=== PATIENT | female | born 1950 | race Caucasian/White ===

== ENCOUNTER 2019-10-23 11:40 | Inpatient (IN) | payer MEDICARE, OTHER ==
[~2019-10-23] VITALS: Ht 152.4 cm; Wt 70.3 kg
[2019-10-23] MEDS ORDERED: CORTEF10 MG PO (11:47)
[2019-10-23] MEDS ORDERED: PROTONIX40 MG PO (11:47)
[2019-10-23] MEDS ORDERED: TOPROL XL25 MG PO (11:47)
[2019-10-23] MEDS ORDERED: ROPINIROLE HCL2 MG PO (11:48)
[2019-10-23] MEDS ORDERED: LEVOXYL25 MCG PO (11:48)
[2019-10-23] MEDS ORDERED: ULTRAM50 MG PO (11:48)
[2019-10-23] MEDS ORDERED: MICARDIS HCT 81 EACH PO (11:49)
[2019-10-23] MEDS ORDERED: MOBIC7.5 MG PO (11:49)
[2019-10-23] MEDS ORDERED: PLAVIX75 MG PO (11:49)
[2019-10-23] MEDS ORDERED: BUPROPION XL150 MG PO (11:50)
[2019-10-23] MEDS ORDERED: BUMEX2 MG PO (11:50)
[2019-10-23] MEDS ORDERED: CORTEF 5 MG TAB5 MG PO (11:51)
[2019-10-23] MEDS ORDERED: K-DUR20 MEQ PO (11:51)
[2019-10-23 12:28] LABS: BILIRUBIN NEGATIVE (NEGATIVE); GLUCOSE NEGATIVE (NEGATIVE); KETONE NEGATIVE (NEGATIVE); NITRITE NEGATIVE (NEGATIVE); UROBILINOGEN NORMAL (NORMAL)
[2019-10-23 12:46] LABS: BASOPHILS 0.5 % (0-2); EOSINOPHILS 1.1 % (0-7); HEMATOCRIT 34.6 % (36.0-48.0); HEMOGLOBIN 11.1 g/dL (12-16); IMMATURE GRANULOCYTES 0.3 % (0-5); LYMPHOCYTES 10.7 % (15-50); MCHC 32.1 g/dL (31.0-37.0); MCV 87.2 fL (80.0-100.0); MEAN PLATELET VOLUME 10.5 fL (7.4-10.4); MONOCYTES 9.4 % (2-11); PLATELET COUNT 214 10x3/uL (130-400); RBC 3.97 10x6/uL (4.00-5.40); RDW 13.5 % (11.5-14.5); WBC 6.6 10x3/uL (4.8-10.8)
[2019-10-23 12:50] VITALS: BP 93/53
[2019-10-23 12:55] LABS: APTT 25.2 SECONDS (22.8-39.4); INR 0.98 (0.85-1.17)
[2019-10-23 12:59] LABS: CALC OSMOLALITY 268 mosm/kg (275-300); CALCIUM 8.5 mg/dL (8.5-10.1); CARBON DIOXIDE 27.8 mmol/L (21.0-32.0); CHLORIDE - SERUM 96 mmol/L (98-107); GLUCOSE 115 mg/dL (74-106); POTASSIUM - SERUM 3.9 mmol/L (3.5-5.1); SODIUM 131 mmol/L (136-145); UREA NITROGEN 27 mg/dL (7-18); eGFR NON AFRICAN AMERICAN 26 mL/min (90-120)
[2019-10-23 13:10] LABS: ALBUMIN 3.9 g/dL (3.4-5.0); ALKALINE PHOSPHATASE 118 U/L (30-120); ALT (SGPT) 16 U/L (10-68); BILIRUBIN - TOTAL 0.31 mg/dL (0.2-1.3); CKMB 0.5 U/L (0.0-3.6); CREATINE KINASE 88 UL (21-215); PRO BNP 514 pg/mL (0-125); PROTEIN - SERUM 6.9 g/dL (6.4-8.2); TROPONIN-I < 0.017 ng/mL (0.000-0.060)
[2019-10-23 13:50] VITALS: BP 107/71
[2019-10-23 14:37] VITALS: BP 93/58
[2019-10-23] MEDS ORDERED: STERAPRED 5MG 65 M1 PO (15:35)
[2019-10-23] MEDS ORDERED: OMNICEF300 MG PO (15:35)
[2019-10-23 15:37] VITALS: BP 93/55
--- NOTE | 2019-10-24 19:38 | NUR ---
PATIENT CALLED AND NOTIFIED OF POSITIVE COVID RESULTS
--- NOTE | 2019-10-25 12:38 | NUR ---
PT TO FLOOR FROM ER ADMISSIONS. IN COVID ISOLATION. IV STARTED AND LABS DRAWN. PT ON ROOM AIR.
[2019-10-25] MEDS ORDERED: METHOCARBAMOL500 MG PO (12:50)
[2019-10-25] MEDS ORDERED: HYDROCODON-ACE1 EAC7 PO (12:51)
[2019-10-25] MEDS ORDERED: VITAMIN D1000 UNIT PO (12:53)
[2019-10-25 13:36] LABS: BASOPHILS 0 % (0-2); EOSINOPHILS 0 % (0-7); HEMATOCRIT 35.6 % (36.0-48.0); HEMOGLOBIN 11.7 g/dL (12-16); IMMATURE GRANULOCYTES 0.4 % (0-5); LYMPHOCYTES 12.9 % (15-50); MCH 28.3 pg (26.0-34.0); MCHC 32.9 g/dL (31.0-37.0); MEAN PLATELET VOLUME 10.5 fL (7.4-10.4); MONOCYTES 8.3 % (2-11); NEUTROPHILS 78.4 % (40-80); PLATELET COUNT 201 10x3/uL (130-400); RBC 4.14 10x6/uL (4.00-5.40); RDW 13.5 % (11.5-14.5); WBC 4.6 10x3/uL (4.8-10.8)
[2019-10-25 14:04] LABS: ANION GAP 15.2 mmol/L (8-16); BILIRUBIN - TOTAL 0.45 mg/dL (0.2-1.3); CALCIUM 8.9 mg/dL (8.5-10.1); CARBON DIOXIDE 26.5 mmol/L (21.0-32.0); POTASSIUM - SERUM 4.7 mmol/L (3.5-5.1)
[2019-10-25 16:03] VITALS: BP 117/45
[2019-10-25 16:37] VITALS: BP 102/64; BMI 30.3
[2019-10-25 18:17] LABS: % SATURATION 14 % (15-55); IRON 61 ug/dl (35-150); TOTAL IRON BIND CAPACITY 427 ug/dl (260-445); UNSAT IRON BIND CAPACITY 366 ug/dl (150-375)
[2019-10-25 21:08] VITALS: BP 95/57
[2019-10-26 00:43] VITALS: BP 91/54
[2019-10-26 05:34] VITALS: BP 92/57
[2019-10-26 07:24] LABS: BASOPHILS 0.2 % (0-2); EOSINOPHILS 0.4 % (0-7); HEMATOCRIT 34.8 % (36.0-48.0); HEMOGLOBIN 11.2 g/dL (12-16); IMMATURE GRANULOCYTES 0.2 % (0-5); MCH 28.2 pg (26.0-34.0); MCHC 32.2 g/dL (31.0-37.0); MCV 87.7 fL (80.0-100.0); MEAN PLATELET VOLUME 10.2 fL (7.4-10.4); MONOCYTES 14.5 % (2-11); NEUTROPHILS 44.7 % (40-80); PLATELET COUNT 206 10x3/uL (130-400); RBC 3.97 10x6/uL (4.00-5.40); RDW 13.6 % (11.5-14.5); WBC 4.6 10x3/uL (4.8-10.8)
[2019-10-26 07:29] LABS: ALBUMIN 3.8 g/dL (3.4-5.0); ANION GAP 11.2 mmol/L (8-16); BILIRUBIN - TOTAL 0.51 mg/dL (0.2-1.3); CALCIUM 8.8 mg/dL (8.5-10.1); CARBON DIOXIDE 28.9 mmol/L (21.0-32.0); CREATININE - SERUM 1.9 mg/dL (0.6-1.3); POTASSIUM - SERUM 4.1 mmol/L (3.5-5.1); PROTEIN - SERUM 6.6 g/dL (6.4-8.2)
--- NOTE | 2019-10-26 09:27 | NUR ---
PT AWAKE AND ORIETNED, LYING IN BED. SAT UP TO EAT BREAKFAST. NO COMPLIANTS OR CONCERNS AT THIS TIME. CL IN REACH, SRX2.
[2019-10-26 12:35] VITALS: BP 98/62
[2019-10-26 14:23] VITALS: Ht 152.4 cm; Wt 70.3 kg
[2019-10-26 17:01] VITALS: BP 90/56
--- NOTE | 2019-10-26 17:28 | NUR ---
PT AWAKE AND ORIENTED, SITTIN GIN BED. TOOK MEDICATIONS WITHOUT COMPLICATIONS. PT EXPRESSED TO THE TECH THAT SHE HADN'T SEEN THE NURSE ALL DAY. THIS IS UNTRUE D/T MY PREVIOUS NOTES WELL DOCUMENTATION OF MEDICATION ADMINISTRATION. BELIEVE PT TO BE CONFUSING US AL THE SAME PERSON D/T PPE COVERAGE. CL IN REACH, SRX2.
[2019-10-26 20:40] VITALS: BP 117/63
--- NOTE | 2019-10-27 02:42 | NUR ---
PT RESTING QUIETLY. NO VOICED C/O OR CONCERNS DURING THE NIGHT. WILL CPOC.
[2019-10-27 04:37] VITALS: BP 104/52
[2019-10-27 05:55] LABS: BASOPHILS 0.2 % (0-2); EOSINOPHILS 1.2 % (0-7); HEMATOCRIT 34.4 % (36.0-48.0); HEMOGLOBIN 10.9 g/dL (12-16); IMMATURE GRANULOCYTES 0.4 % (0-5); MCH 27.5 pg (26.0-34.0); MCHC 31.7 g/dL (31.0-37.0); MCV 86.9 fL (80.0-100.0); MEAN PLATELET VOLUME 10.9 fL (7.4-10.4); MONOCYTES 14.7 % (2-11); NEUTROPHILS 44.5 % (40-80); PLATELET COUNT 211 10x3/uL (130-400); RBC 3.96 10x6/uL (4.00-5.40); RDW 13.6 % (11.5-14.5); WBC 4.8 10x3/uL (4.8-10.8)
[2019-10-27 06:19] LABS: ALBUMIN 3.6 g/dL (3.4-5.0); ANION GAP 10.4 mmol/L (8-16); BILIRUBIN - TOTAL 0.37 mg/dL (0.2-1.3); CALCIUM 8.4 mg/dL (8.5-10.1); CREATININE - SERUM 1.6 mg/dL (0.6-1.3); PROTEIN - SERUM 6.5 g/dL (6.4-8.2)
[2019-10-27 06:26] LABS: POTASSIUM - SERUM 3.4 mmol/L (3.5-5.1)
[2019-10-27 08:43] VITALS: BP 115/70
--- NOTE | 2019-10-27 13:17 | MORECARE ---
CASE MANAGEMENT DISCHARGE SUMMARY PATIENT: WGEN TELLEZ UNIT: [id number] ADM DATE: 10/25/19 AGE: 69 : 48 SEX: F ROOM/BED: D.6687 AUTHOR: BETTINA BRADLEY PHYSICIAN: REFERRING PHYSICIAN: SUZANNE ZAVALA MD DATE OF SERVICE: 10/27/19 Discharge Plan Patient Name: GWEN TELLEZ Facility: [facility]:[place] : 1950 Planned Disposition: Anticipated Discharge Date: Discharge Date: Expected LOS: Initial Reviewer: [email or web address] Initial Review Date: 10/25/2019 Generated: 10/27/19 2:16 pm Comments DCP- Discharge Planning Updated by [email or web address]: Melany Pelaez on 10/27/19 12:[address] Patient Name: GWEN TELLEZ Admission Status: Elective Accout number: [id number] Admission Date: 10-25-2019 : 1950 Admission Diagnosis: Attending: EUSEBIA Current LOS: 2 Anticipated DC Date: Planned Disposition: Primary Insurance: MEDICARE A & B Discharge Planning Comments: CM met with patient via phone call to complete initial dc planning assessment. CM educated patient on the CM role and verbal consent given by patient to complete assessment. CM verified patient's address, phone number, and emergency contact phone numbers. Patient lives at home alone and is independent with her ADL's. At discharge patient plans to return home and feels this is a safe discharge. CM discussed availability of home health, rehab services, and medical equipment. Patient denied known discharge needs at this time. Decl[facility] Transportation provider at discharge will be herself. Pt states her sons will be able to look in on her, and follow social isolation guidelines. DC IMM explained via phone. Pt verbalized understanding.CM will continue to follow and will assist as needed with dc plans/needs. Customer Relations Advisor: Melany Pelaez DCPIA - Discharge Planning Initial Assessment Updated by [id number]: Melany Pelaez on 10/27/19 1:10 pm * Is the patient Alert and Oriented? Yes * How many steps to enter\exit or inside your home? 1/0 * PCP alycia * [facility] * Preadmission Environment Home Alone * ADLs Independent * Equipment Cane Oxygen Rolling Walker Wheelchair * Community resources currently utilized None * Additional services required to return to the preadmission environment? No * Can the patient safely return to the preadmission environment? Yes * Has this patient been hospitalized within the prior 30 days at any hospital? No Coverage Notice Reviewer: [id number] Sruthi Pelaez Notice Issued Date-Time: 10/27/2019 12:00 Notice Type: IM Discharge Notice Notice Delivered To: Patient Relationship to Patient: Drywall Installer Name: Delivery Method: PHONE - Phone Lucina Days: Prior Verbal Notification: Yes Recipient Understood Notice: Yes Recipient Signature: Med Rec Note Co-signed by Attending: Coverage Notice Comment: sonali imm Patient Name: GWEN TELLEZ Page [phone] at 1317 All edits/amendments must be made on the electronic document DICTATION DATE: 10/27/191316 GENERAL MANAGER LAND DEPARTMENT: LORIE 10/27/19 1317 RPT#: [id number] DC DATE: STATUS: ADM IN [facility] [address] [place] [address] END OF REPORT
[2019-10-27] MEDS ORDERED: DECADRON4 MG PO (14:40)
[2019-10-27] MEDS ORDERED: ZITHROMAX250 MG PO (14:40)
--- NOTE | 2019-10-27 19:19 | MORECARE ---
CASE MANAGEMENT DISCHARGE SUMMARY PATIENT: GWEN TELLEZ UNIT: [id number] ADM DATE: 10/25/19 AGE: 69 : 48 SEX: F ROOM/BED: D.0896 AUTHOR: BETTINA BRADLEY PHYSICIAN: REFERRING PHYSICIAN: SUZANNE ZAVALA MD DATE OF SERVICE: 10/27/19 Discharge Plan Patient Name: GWEN TELLEZ Facility: [facility]:[place] : 1950 Planned Disposition: Anticipated Discharge Date: Discharge Date: 10/27/2019 Expected LOS: Initial Reviewer: [email or web address] Initial Review Date: 10/25/2019 Generated: 10/27/19 8:18 pm Comments DCP- Discharge Planning Updated by [id number]: Melany Pelaez on 10/27/19 12:[address] Patient Name: GWEN TELLEZ Admission Status: Elective Accout number: [id number] Admission Date: 10-25-2019 : 1950 Admission Diagnosis: Attending: EUSEBIA Current LOS: 2 Anticipated DC Date: Planned Disposition: Primary Insurance: MEDICARE A & B Discharge Planning Comments: CM met with patient via phone call to complete initial dc planning assessment. CM educated patient on the CM role and verbal consent given by patient to complete assessment. CM verified patient's address, phone number, and emergency contact phone numbers. Patient lives at home alone and is independent with her ADL's. At discharge patient plans to return home and feels this is a safe discharge. CM discussed availability of home health, rehab services, and medical equipment. Patient denied known discharge needs at this time. Declination signed for Home health, and resumption of care for [facility]. Transportation provider at discharge will be herself. Pt states her sons will be able to look in on her, and follow social isolation guidelines. DC IMM explained via phone. Pt verbalized understanding.CM will continue to follow and will assist as needed with dc plans/needs. Fire Control Assistant: Melany Pelaez DCPIA - Discharge Planning Initial Assessment Updated by [email or web address]: Melany Pelaez on 10/27/19 1:10 pm * Is the patient Alert and Oriented? Yes * How many steps to enter\exit or inside your home? 1/0 * PCP alycia * [facility] * Preadmission Environment Home Alone * ADLs Independent * Equipment Cane Oxygen Rolling Walker Wheelchair * Community resources currently utilized None * Additional services required to return to the preadmission environment? No * Can the patient safely return to the preadmission environment? Yes * Has this patient been hospitalized within the prior 30 days at any hospital? No Coverage Notice Reviewer: [id number] Sruthi Pelaez Notice Issued Date-Time: 10/27/2019 12:00 Notice Type: IM Discharge Notice Notice Delivered To: Patient Relationship to Patient: Die Casting Machine Maintainer Name: Delivery Method: PHONE - Phone Lucina Days: Prior Verbal Notification: Yes Recipient Understood Notice: Yes Recipient Signature: Med Rec Note Co-signed by Attending: Coverage Notice Comment: dc imm Reviewer: [email or web address] Sruthi Pelaez Notice Issued Date-Time: 10/27/2019 11:30 Notice Type: Patient Choice Letter Notice Delivered To: Patient Relationship to Patient: Die Casting Machine Maintainer Name: Delivery Method: PHONE - Phone Lucina Days: Prior Verbal Notification: Yes Recipient Understood Notice: Yes Recipient Signature: Med Rec Note Co-signed by Attending: Coverage Notice Comment: resumption of [employer]- declination for hh Last DP export: 10/27/19 12:17 p Patient Name: GWEN TELLEZ Page [id number] at 1919 All edits/amendments must be made on the electronic document DICTATION DATE: 10/27/191917 DITCHER: LORIE 10/27/191917 RPT#: [id number] DC DATE:10/27/19 STATUS: DIS IN [facility] [address] [place] [address] END OF REPORT
== END 2019-10-27 16:11 | disposition home or self-care (01) | DRG 178 ==
LOC: D.ER 11:40 → D.M2 10-25 11:50
PROVIDERS: Emergency Medicine; ADMIT Family Medicine; ATTEND Family Medicine
DX: U07.1 COVID-19 (principal); N17.9 Acute kidney failure, unspecified; E27.40 Unspecified adrenocortical insufficiency; I50.32 Chronic diastolic (congestive) heart failure; I13.0 Hypertensive heart and chronic kidney disease with heart failure and stage 1 through stage 4 chronic kidney disease, or unspecified chronic kidney disease; J44.1 Chronic obstructive pulmonary disease with (acute) exacerbation; E03.9 Hypothyroidism, unspecified; K21.9 Gastro-esophageal reflux disease without esophagitis; N18.9 Chronic kidney disease, unspecified

== ENCOUNTER 2020-05-31 07:35 | Inpatient (IN) | payer MEDICARE, OTHER ==
[~2020-05-31] VITALS: Ht 152.4 cm; Wt 70.3 kg
[~2020-05-31 07:35] MED LIST: BUMEX2 MG PO; BUPROPION XL150 MG PO; CORTEF 5 MG TAB5 MG PO; CORTEF10 MG PO; DECADRON4 MG PO; HYDROCODON-ACE1 EAC7 PO; K-DUR20 MEQ PO; LEVOXYL25 MCG PO; METHOCARBAMOL500 MG PO; MICARDIS HCT 81 EACH PO; MOBIC7.5 MG PO; OMNICEF300 MG PO; PLAVIX75 MG PO; PROTONIX40 MG PO; ROPINIROLE HCL2 MG PO; STERAPRED 5MG 65 M1 PO; TOPROL XL25 MG PO; ULTRAM50 MG PO; VITAMIN D1000 UNIT PO; ZITHROMAX250 MG PO
[2020-06-01] MEDS ORDERED: NORVASC2.5 MG PO (12:48)
[2020-06-01] MEDS ORDERED: ISOSORBIDE MONO30 M1 PO (12:48)
[2020-06-01 12:49] LABS: ANION GAP 8.9 mmol/L (8-16); CALCIUM 8.6 mg/dL (8.5-10.1); CARBON DIOXIDE 30.7 mmol/L (21.0-32.0); CREATININE - SERUM 1.5 mg/dL (0.6-1.3); POTASSIUM - SERUM 4.6 mmol/L (3.5-5.1)
[2020-06-01 13:09] LABS: BASOPHILS 0.5 % (0-2); EOSINOPHILS 3.9 % (0-7); HEMATOCRIT 36.5 % (36.0-48.0); HEMOGLOBIN 11.4 g/dL (12-16); IMMATURE GRANULOCYTES 0.3 % (0-5); LYMPHOCYTE ABS# 1.81 10x3/uL (1.18-3.74); LYMPHOCYTES 23.5 % (15-50); MCHC 31.2 g/dL (31.0-37.0); MCV 83.3 fL (80.0-100.0); MEAN PLATELET VOLUME 10.2 fL (7.4-10.4); MONOCYTES 6.2 % (2-11); NEUTROPHIL ABS# 5.06 10x3/uL (1.56-6.13); NEUTROPHILS 65.6 % (40-80); RBC 4.38 10x6/uL (4.00-5.40); RDW 14.9 % (11.5-14.5); WBC 7.7 10x3/uL (4.8-10.8)
[2020-06-01 13:31] LABS: PLATELET COUNT 256 10x3/uL (130-400)
[2020-06-01 13:38] LABS: BILIRUBIN NEGATIVE (NEGATIVE); KETONE NEGATIVE (NEGATIVE); NITRITE NEGATIVE (NEGATIVE); UROBILINOGEN NORMAL mg/dL (< 2)
[2020-06-01 15:40] LABS: APTT 21.4 SECONDS (22.8-39.4); INR 1.06 (0.85-1.17); PROTIME 12.8 SECONDS (11.6-15.0)
[2020-06-06] VITALS (9 sets, daily range): BP systolic 94–145; BP diastolic 48–93; BMI 30.3
--- NOTE | 2020-06-06 14:48 | NUR ---
PT RIGHT LEG (OPERATIVE LEG) CLEANSED WITH ALCOHOL FROM THIGH TO TOES CIRCUMFERENTIALLY PRIOR TO PREP. RIGHT LEG PREPPED WITH CHLORAPREP X2 FROM THIGH TO TOES CIRCUMFERENTIALLY. RN IN STERILE ATTIRE TO PREP.
--- NOTE | 2020-06-06 16:00 | NUR ---
RECEIVED TO ROOM 1210. A/O X3. DRESSING TO LEFT KNEE IS DRY AND INTACT WITH DAVOL DRAIN INTACT. DENIES NEEDS.
--- NOTE | 2020-06-06 18:20 | NUR ---
ATE ALL OF SUPPER TRAY. SON AT BEDSIDE. DENIES NEEDS. NO CHANGES NOTED.
--- NOTE | 2020-06-06 18:45 | NUR ---
PATIENT RESTING IN BED WITH NO S/S OF DISTRESS. NO DRAINAGE NOTED TO DRESSING. CPM TO LEFT KNEE. SCD AND HARMAN HOSE IN PLACE. IV INFUSING TO RIGHT HAND. ENCOURAGED PATIENT TO CALL WITH NEEDS.
[2020-06-07 04:00] VITALS: BP 105/70
--- NOTE | 2020-06-07 04:30 | NUR ---
PLACED PATIENT ON CPM MACHINE TO LEFT KNEE
[2020-06-07 05:14] LABS: BASOPHILS 0.2 % (0-2); EOSINOPHILS 0.3 % (0-7); IMMATURE GRANULOCYTES 0.2 % (0-5); LYMPHOCYTE ABS# 1.04 10x3/uL (1.18-3.74); LYMPHOCYTES 9.8 % (15-50); MCH 25.9 pg (26.0-34.0); MCV 83.3 fL (80.0-100.0); MONOCYTES 8.2 % (2-11); NEUTROPHIL ABS# 8.59 10x3/uL (1.56-6.13); NEUTROPHILS 81.3 % (40-80); RBC 3.48 10x6/uL (4.00-5.40); RDW 14.6 % (11.5-14.5); WBC 10.6 10x3/uL (4.8-10.8)
[2020-06-07 05:18] LABS: PLATELET COUNT 190 10x3/uL (130-400)
[2020-06-07 05:56] LABS: ALBUMIN 2.8 g/dL (3.4-5.0); ANION GAP 10.7 mmol/L (8-16); BILIRUBIN - TOTAL 0.4 mg/dL (0.2-1.3); CALCIUM 7.3 mg/dL (8.5-10.1); CARBON DIOXIDE 25.6 mmol/L (21.0-32.0); CREATININE - SERUM 1.6 mg/dL (0.6-1.3); MAGNESIUM - SERUM 2.3 mg/dL (1.8-2.4); POTASSIUM - SERUM 4.3 mmol/L (3.5-5.1); PROTEIN - SERUM 5.1 g/dL (6.4-8.2)
[2020-06-07 07:49] VITALS: BP 107/55
--- NOTE | 2020-06-07 07:50 | NUR ---
AWAKE AND ALERT. ORIENTED X3. NO C/O THIS AM. LUNGS ARE CLEAR BILATERALLY, NO COUGH NOTED. SKIN IS INTACT WITHOUT REDNESS EXCEPT INCISION TO LEFT KNEE WHICH HAS A DRY INTACT DRESSING IN PLACE. IV TO RIGHT HAND IS PATENT WITHOUT REDNESS AT INSERTION SITE. SITTING UP IN BED EATING BREAKFAST. SON AT BEDSIDE. DENIES NEEDS.
--- NOTE | 2020-06-07 09:30 | NUR ---
ATE MOST OF BREAKFAST. TOOK AM MEDS WITHOUT DIFFICULTY. DENIES NEEDS.
[2020-06-07 12:07] VITALS: BP 119/47
--- NOTE | 2020-06-07 12:30 | NUR ---
ATE ALL OF LUNCH. DENIES NEEDS. SITTING UP IN CHAIR AT BEDSIDE.
--- NOTE | 2020-06-07 14:10 | MORECARE ---
CASE MANAGEMENT DISCHARGE SUMMARY PATIENT: GWEN TELLEZ UNIT: [id number] ADM DATE: 06/06/20 AGE: 70 : 48 SEX: F ROOM/BED: D.1210 AUTHOR: KIRK,DOC PHYSICIAN: REFERRING PHYSICIAN: ALLY MUNOZ MD DATE OF SERVICE: 06/07/20 Case Management Discharge Planning Summary COMMENTS ENTERED DATE: 06/07/20 14:07 CT COMMENT TYPE: Discharge Planning REVIEWER: Devang Cedeño CM met with patient to complete DC plan and to evaluate needs. Patient stated that she lives independently alone but has help at times from her sons. At discharge, the patient plans to return home and feels this is a safe discharge. CM discussed availability of home health, rehab services, and medical equipment. Patient declined HHS, SNF, and DME. Patient would like to have [facility] Inpatient Rehab. RAMA signed and placed on chart. Patient voiced no other needs at this time and is satisfied with DC plan. DC IMM delivered, explained, signed by the patient, and placed in chart. Signed form also left with the patient. CM will continue to follow and will assist as needed with dc plans/needs. DCP REVIEW SUMMARY ANTICIPATED D/C DATE: 06/07/2020 EXPECTED LOS : 1 CASE STATUS: DCP Initiated INITIAL REVIEW: 06/06/2020 INITIAL REVIEWER: Devang Cedeño FINAL DISCHARGE DISPOSITION: : FINAL REVIEWER: FINAL REVIEW DATE: DCP Focus Questions & Answers DCP REV -DCP Review Added on: 06/07/20 2:05 pm QUESTION: ANSWER DCP Evaluation Patient gives permission to discuss discharge plans with: (name, relationship and number) : VALERIA TELLEZ, ERROL, Physical Status: : Independent with ADL's Baseline cognitive status: : *Oriented to person, place, situation, time and present Patient's ability to cope with chronic illness : d. No chronic illness Living Arrangements: : Home Alone with Support Medication Management: : Patient states can afford medications Medication Management: : Patient states can read and understand medication labels Pharmacy name(s): : [facility] [place], [place] Does Patient have transportation to get home and to follow-up medical appointments when discharged from the hospital? : Yes Does the patient have electricity at home? : Yes Does the patient have running water in their house? : Yes Equipment in use: : Cane - [employer] Mental health screen: : No mental health history Patient's current cognitive status: : *Oriented to person, place, situation, time and present Functional screen assessment: : Basic needs can adequately be met by self Patient with capacity for self-care or can be cared for in same environment as prior to hospitalization? : Yes Does the patient have the ability to pay for or attain post discharge needs / services? : Yes Is there a likelihood that the patient will require additional services to return to the preadmission environment? : No Patient and/or caregiver agree upon recommended discharge plan? : Yes Equipment needed for post hospitalization: : None Physical environment modification needed / anticipated for discharge: : No Would patient like to participate in any Care Coordination programs (if applicable): : Not applicable DCP Re-evaluation Would patient like to participate in any Care Coordination programs (if applicable): : Not applicable PATIENT: GWEN TELLEZ ENCOUNTER: [id number] MEDICAL RECORD#: [id number] ADMISSION DATE: 06/06/2020 DISCHARGE DATE: ATTENDING MD: BARTOLO: AGE: 70 MARITAL STATUS: S DC PLAN ID: [id number] FACILITY: [facility] PRINTED ON: 06/07/20 14:09 CT All edits/amendments must be made on the electronic document DICTATION DATE: 06/07/201408 STRATEGIC PARTNERSHIP REPRESENTATIVE: LORIE 06/07/201408 RPT#: [id number] DC DATE: STATUS: ADM IN [facility] [address] [place] [address] END OF REPORT
[2020-06-07 14:14] VITALS: Ht 152.4 cm; Wt 70.3 kg
--- NOTE | 2020-06-07 15:00 | NUR ---
CONTINUES TO BE UP IN CHAIR AT BEDSIDE. DENIES NEEDS.
[2020-06-07 15:27] VITALS: BP 120/84
--- NOTE | 2020-06-07 17:32 | NUR ---
ATE ABOUT HALF OF SUPPER. UP TO BSC WITH MIN ASSIST OF ONE. VOIDED 200cc OF CLEAR YELLOW URINE. SKIN CARE PER SELF. NO CHANGES NOTED. DENIES NEEDS.
[2020-06-07 19:18] VITALS: BP 110/52
--- NOTE | 2020-06-07 19:18 | NUR ---
VSS. ENCOURAGED PATIENT TO CALL WITH NEEDS.
--- NOTE | 2020-06-07 20:05 | NUR ---
ASSISTED PATIENT TO AND FROM BSC. PATIENT VOIDED AND HAD BM. PATIENT DENIES OTHER NEEDS AT THIS TIME. BED IN LOWEST POSITION AND CALL LIGHT IN REACH. ENCOURAGED PATIENT TO CALL WITH NEEDS.
[2020-06-08] VITALS: BP 102/48
[2020-06-08 04:00] VITALS: BP 128/62
[2020-06-08 07:01] LABS: BASOPHILS 0.4 % (0-2); EOSINOPHILS 3.1 % (0-7); HEMATOCRIT 29.9 % (36.0-48.0); HEMOGLOBIN 9.3 g/dL (12-16); IMMATURE GRANULOCYTES 0.2 % (0-5); LYMPHOCYTE ABS# 1.58 10x3/uL (1.18-3.74); LYMPHOCYTES 19.6 % (15-50); MCHC 31.1 g/dL (31.0-37.0); MCV 83.5 fL (80.0-100.0); MEAN PLATELET VOLUME 10.7 fL (7.4-10.4); MONOCYTES 9.3 % (2-11); NEUTROPHIL ABS# 5.43 10x3/uL (1.56-6.13); NEUTROPHILS 67.4 % (40-80); PLATELET COUNT 207 10x3/uL (130-400); RBC 3.58 10x6/uL (4.00-5.40); WBC 8.1 10x3/uL (4.8-10.8)
[2020-06-08 07:16] LABS: ALBUMIN 3.1 g/dL (3.4-5.0); ANION GAP 13.8 mmol/L (8-16); BILIRUBIN - TOTAL 0.51 mg/dL (0.2-1.3); CALCIUM 7.5 mg/dL (8.5-10.1); CARBON DIOXIDE 25.4 mmol/L (21.0-32.0); CREATININE - SERUM 1.5 mg/dL (0.6-1.3); MAGNESIUM - SERUM 2.1 mg/dL (1.8-2.4); POTASSIUM - SERUM 4.2 mmol/L (3.5-5.1); PROTEIN - SERUM 5.4 g/dL (6.4-8.2)
[2020-06-08 08:14] VITALS: BP 142/61
--- NOTE | 2020-06-08 08:24 | NUR ---
PT SITTING UP IN BED EATING BREAKFAST. STATES PAIN IS A 6 OUT OF 10 ON THE PAIN SCALE. CL IN REACH. NO FURTHER NEEDS AT THIS TIME. WCTM
--- NOTE | 2020-06-08 09:21 | NUR ---
REHAB PRESCREENING This patient is a good candidate for acute inpatient rehab. I will begin her electronic screen and plan to admit her when approvals are in place and her physicians feel she is appropriate for discharge. Thank you for this referral! Chely Valencia, AUTOMOTIVE WINDOW [employer]INTER Rehab PD
--- NOTE | 2020-06-08 11:44 | NUR ---
PT ASSISTEED TO BSC AND BACK TO BED. CL IN REACH. NO NEEDS AT THIS TIME. WCTM
[2020-06-08 12:16] VITALS: BP 120/73
--- NOTE | 2020-06-08 13:48 | NUR ---
WALKED PATIENT 150 FT WITH WALKER DID WELL MIN ASSIT
--- NOTE | 2020-06-08 14:51 | NUR ---
PT ASSISTED TO BSC AND BACK TO BED. 2 ICE PACKS GIVEN FOR PAIN. ASKED WHEN NEXT AVAILABLE PAIN PILL WOULD BE. I LOOKED IT UP TO BE 320. I TOLD HER AND WROTE IT ON THE BOARD TO REMIND HER TO NOTIFY ME. CL IN REACH. VISHNU
[2020-06-08 15:13] VITALS: BP 115/66
--- NOTE | 2020-06-08 16:11 | MORECARE ---
CASE MANAGEMENT DISCHARGE SUMMARY PATIENT: GWEN TELLEZ UNIT: [id number] ADM DATE: 06/06/20 AGE: 70 : 48 SEX: F ROOM/BED: D.1210 AUTHOR: KIRK,DOC PHYSICIAN: REFERRING PHYSICIAN: ALLY MUNOZ MD DATE OF SERVICE: 06/08/20 Case Management Discharge Planning Summary COMMENTS ENTERED DATE: 06/08/20 16:01 CT COMMENT TYPE: Discharge Planning REVIEWER: Rosibel Almendarez IP REHAB @ [facility] HAS ACCEPTED PATIENT AND SHE WILL DISCHARGE TODAY. ENTERED DATE: 06/07/20 14:07 CT COMMENT TYPE: Discharge Planning REVIEWER: Devang Cedeño CM met with patient to complete DC plan and to evaluate needs. Patient stated that she lives independently alone but has help at times from her sons. At discharge, the patient plans to return home and feels this is a safe discharge. CM discussed availability of home health, rehab services, and medical equipment. Patient declined HHS, SNF, and DME. Patient would like to have [facility] Inpatient Rehab. RAMA signed and placed on chart. Patient voiced no other needs at this time and is satisfied with DC plan. DC IMM delivered, explained, signed by the patient, and placed in chart. Signed form also left with the patient. CM will continue to follow and will assist as needed with dc plans/needs. DCP REVIEW SUMMARY ANTICIPATED D/C DATE: 06/07/2020 EXPECTED LOS : 1 CASE STATUS: DCP Initiated INITIAL REVIEW: 06/06/2020 INITIAL REVIEWER: Devang Cedeño FINAL DISCHARGE DISPOSITION: : FINAL REVIEWER: FINAL REVIEW DATE: DCP Focus Questions & Answers DCP REV -DCP Review Added on: 06/07/20 2:05 pm QUESTION: ANSWER DCP Evaluation Patient gives permission to discuss discharge plans with: (name, relationship and number) : ERROL GRECO, Physical Status: : Independent with ADL's Baseline cognitive status: : *Oriented to person, place, situation, time and present Patient's ability to cope with chronic illness : d. No chronic illness Living Arrangements: : Home Alone with Support Medication Management: : Patient states can afford medications Medication Management: : Patient states can read and understand medication labels Pharmacy name(s): : [facility] [place], [place] Does Patient have transportation to get home and to follow-up medical appointments when discharged from the hospital? : Yes Does the patient have electricity at home? : Yes Does the patient have running water in their house? : Yes Equipment in use: : Cane - [employer] Mental health screen: : No mental health history Patient's current cognitive status: : *Oriented to person, place, situation, time and present Functional screen assessment: : Basic needs can adequately be met by self Patient with capacity for self-care or can be cared for in same environment as prior to hospitalization? : Yes Does the patient have the ability to pay for or attain post discharge needs / services? : Yes Is there a likelihood that the patient will require additional services to return to the preadmission environment? : No Patient and/or caregiver agree upon recommended discharge plan? : Yes Equipment needed for post hospitalization: : None Physical environment modification needed / anticipated for discharge: : No Would patient like to participate in any Care Coordination programs (if applicable): : Not applicable DCP Re-evaluation Would patient like to participate in any Care Coordination programs (if applicable): : Not applicable PATIENT: GWEN TELLEZ ENCOUNTER: [id number] MEDICAL RECORD#: [id number] ADMISSION DATE: 06/06/2020 DISCHARGE DATE: ATTENDING MD: BARTOLO: AGE: 70 MARITAL STATUS: S DC PLAN ID: [id number] FACILITY: [facility] PRINTED ON: 06/08/20 16:11 CT All edits/amendments must be made on the electronic document DICTATION DATE: 06/08/201610 HEAD BATCHER: DM 06/08/201610 RPT#: [id number] DC DATE: STATUS: ADM IN [facility] [address] [place] [address] END OF REPORT
[2020-06-08] MEDS ORDERED: ELIQUIS2.5 MG PO (16:14)
[2020-06-08] MEDS ORDERED: HYDROCODONE-AC1 EAC2 PO (16:16)
[2020-06-08] MEDS ORDERED: OXYCONTIN10 MG PO (16:17)
--- NOTE | 2020-06-08 16:41 | NUR ---
IV THERAPY REMOVED FROM RIGHT WRIST WITH TIP INTACT. DISCHARGE PAPERWORK SIGNED. CALLED REPORT TO INPATIENT REHAB TO [facility]. BRYAN TOOK PT BELONGINGS MINUS ELECTRONICS TO ROOM. PT ASSISTED TO BSC AND TO WASH HANDS THEN BACK TO BED. PT OPTED TO EAT DINNER AND THEN GO. VISHNU
--- NOTE | 2020-06-08 17:22 | MORECARE ---
CASE MANAGEMENT DISCHARGE SUMMARY PATIENT: GWEN TELLEZ UNIT: [id number] ADM DATE: 06/06/20 AGE: 70 : 48 SEX: F ROOM/BED: D.1210 AUTHOR: KIRK,DOC PHYSICIAN: REFERRING PHYSICIAN: ALLY MUNOZ MD DATE OF SERVICE: 06/08/20 Case Management Discharge Planning Summary COMMENTS ENTERED DATE: 06/08/20 16:01 CT COMMENT TYPE: Discharge Planning REVIEWER: Rosibel Almendarez IP REHAB @ [facility] HAS ACCEPTED PATIENT AND SHE WILL DISCHARGE TODAY. ENTERED DATE: 06/07/20 14:07 CT COMMENT TYPE: Discharge Planning REVIEWER: Devang Cedeño CM met with patient to complete DC plan and to evaluate needs. Patient stated that she lives independently alone but has help at times from her sons. At discharge, the patient plans to return home and feels this is a safe discharge. CM discussed availability of home health, rehab services, and medical equipment. Patient declined HHS, SNF, and DME. Patient would like to have [facility] Inpatient Rehab. RAMA signed and placed on chart. Patient voiced no other needs at this time and is satisfied with DC plan. DC IMM delivered, explained, signed by the patient, and placed in chart. Signed form also left with the patient. CM will continue to follow and will assist as needed with dc plans/needs. DCP REVIEW SUMMARY ANTICIPATED D/C DATE: 06/07/2020 EXPECTED LOS : 1 CASE STATUS: DCP Initiated INITIAL REVIEW: 06/06/2020 INITIAL REVIEWER: Devang Cedeño FINAL DISCHARGE DISPOSITION: : FINAL REVIEWER: FINAL REVIEW DATE: DCP Focus Questions & Answers DCP REV -DCP Review Added on: 06/07/20 2:05 pm QUESTION: ANSWER DCP Evaluation Patient gives permission to discuss discharge plans with: (name, relationship and number) : ERROL GRECO, Physical Status: : Independent with ADL's Baseline cognitive status: : *Oriented to person, place, situation, time and present Patient's ability to cope with chronic illness : d. No chronic illness Living Arrangements: : Home Alone with Support Medication Management: : Patient states can afford medications Medication Management: : Patient states can read and understand medication labels Pharmacy name(s): : [facility] [place] Does Patient have transportation to get home and to follow-up medical appointments when discharged from the hospital? : Yes Does the patient have electricity at home? : Yes Does the patient have running water in their house? : Yes Equipment in use: : Cane - [employer] Mental health screen: : No mental health history Patient's current cognitive status: : *Oriented to person, place, situation, time and present Functional screen assessment: : Basic needs can adequately be met by self Patient with capacity for self-care or can be cared for in same environment as prior to hospitalization? : Yes Does the patient have the ability to pay for or attain post discharge needs / services? : Yes Is there a likelihood that the patient will require additional services to return to the preadmission environment? : No Patient and/or caregiver agree upon recommended discharge plan? : Yes Equipment needed for post hospitalization: : None Physical environment modification needed / anticipated for discharge: : No Would patient like to participate in any Care Coordination programs (if applicable): : Not applicable DCP Re-evaluation Would patient like to participate in any Care Coordination programs (if applicable): : Not applicable PATIENT: GWEN TELLEZ ENCOUNTER: [id number] MEDICAL RECORD#: [id number] ADMISSION DATE: 06/06/2020 DISCHARGE DATE: 06/08/2020 ATTENDING MD: BARTOLO: 1951-Mar-11 AGE: 70 MARITAL STATUS: S DC PLAN ID: [id number] FACILITY: [facility] PRINTED ON: 06/08/20 17:22 CT All edits/amendments must be made on the electronic document DICTATION DATE: 06/08/201721 CLEANING STAFF SUPERVISOR: DM 06/08/201721 RPT#: [id number] DC DATE:06/08/20 STATUS: DIS IN [facility] [address] [place] [address] END OF REPORT
--- NOTE | 2020-06-09 07:20 | MORECARE ---
CASE MANAGEMENT DISCHARGE SUMMARY PATIENT: GWEN TELLEZ UNIT: [id number] ADM DATE: 06/06/20 AGE: 70 : 48 SEX: F ROOM/BED: D.1210 AUTHOR: KIRK,DOC PHYSICIAN: REFERRING PHYSICIAN: ALLY MUNOZ MD DATE OF SERVICE: 06/09/20 Case Management Discharge Planning Summary COMMENTS ENTERED DATE: 06/08/20 16:01 CT COMMENT TYPE: Discharge Planning REVIEWER: Rosibel Almendarez IP REHAB @ [facility] HAS ACCEPTED PATIENT AND SHE WILL DISCHARGE TODAY. ENTERED DATE: 06/07/20 14:07 CT COMMENT TYPE: Discharge Planning REVIEWER: Devang Cedeño CM met with patient to complete DC plan and to evaluate needs. Patient stated that she lives independently alone but has help at times from her sons. At discharge, the patient plans to return home and feels this is a safe discharge. CM discussed availability of home health, rehab services, and medical equipment. Patient declined HHS, SNF, and DME. Patient would like to have [facility] Inpatient Rehab. RAMA signed and placed on chart. Patient voiced no other needs at this time and is satisfied with DC plan. DC IMM delivered, explained, signed by the patient, and placed in chart. Signed form also left with the patient. CM will continue to follow and will assist as needed with dc plans/needs. DCP REVIEW SUMMARY ANTICIPATED D/C DATE: 06/07/2020 EXPECTED LOS : 1 CASE STATUS: DCP Initiated INITIAL REVIEW: 06/06/2020 INITIAL REVIEWER: Devang Cedeño FINAL DISCHARGE DISPOSITION: : FINAL REVIEWER: FINAL REVIEW DATE: DCP Focus Questions & Answers DCP REV -DCP Review Added on: 06/07/20 2:05 pm QUESTION: ANSWER DCP Evaluation Patient gives permission to discuss discharge plans with: (name, relationship and number) : ERROL GRECO, Physical Status: : Independent with ADL's Baseline cognitive status: : *Oriented to person, place, situation, time and present Patient's ability to cope with chronic illness : d. No chronic illness Living Arrangements: : Home Alone with Support Medication Management: : Patient states can afford medications Medication Management: : Patient states can read and understand medication labels Pharmacy name(s): : [facility] IN [place] Does Patient have transportation to get home and to follow-up medical appointments when discharged from the hospital? : Yes Does the patient have electricity at home? : Yes Does the patient have running water in their house? : Yes Equipment in use: : Cane - [employer] Mental health screen: : No mental health history Patient's current cognitive status: : *Oriented to person, place, situation, time and present Functional screen assessment: : Basic needs can adequately be met by self Patient with capacity for self-care or can be cared for in same environment as prior to hospitalization? : Yes Does the patient have the ability to pay for or attain post discharge needs / services? : Yes Is there a likelihood that the patient will require additional services to return to the preadmission environment? : No Patient and/or caregiver agree upon recommended discharge plan? : Yes Equipment needed for post hospitalization: : None Physical environment modification needed / anticipated for discharge: : No Would patient like to participate in any Care Coordination programs (if applicable): : Not applicable DCP Re-evaluation Would patient like to participate in any Care Coordination programs (if applicable): : Not applicable PATIENT: GWEN TELLEZ ENCOUNTER: [id number] MEDICAL RECORD#: [id number] ADMISSION DATE: 06/06/2020 DISCHARGE DATE: 06/08/2020 ATTENDING MD: BARTOLO: 1951-Mar-11 AGE: 70 MARITAL STATUS: S DC PLAN ID: [id number] FACILITY: [facility] PRINTED ON: 06/09/20 7:19 CT All edits/amendments must be made on the electronic document DICTATION DATE: 06/09/20718 AUTOMATIC COIN MACHINE MECHANIC: DM 06/09/20718 RPT#: [id number] DC DATE:06/08/20 STATUS: DIS IN [facility] [address] [place] [address] END OF REPORT
--- NOTE | 2020-06-09 10:15 | MORECARE ---
CASE MANAGEMENT DISCHARGE SUMMARY PATIENT: GWEN TELLEZ UNIT: [id number] ADM DATE: 06/06/20 AGE: 70 : 48 SEX: F ROOM/BED: D.1210 AUTHOR: KIRK,DOC PHYSICIAN: REFERRING PHYSICIAN: ALLY MUNOZ MD DATE OF SERVICE: 06/09/20 Case Management Discharge Planning Summary COMMENTS ENTERED DATE: 06/08/20 16:01 CT COMMENT TYPE: Discharge Planning REVIEWER: oRsibel Almendarez IP REH[facility] @ [facility] HAS ACCEPTED PATIENT AND SHE WILL DISCHARGE TODAY. ENTERED DATE: 06/07/20 14:07 CT COMMENT TYPE: Discharge Planning REVIEWER: Devang Cedeño CM met with patient to complete DC plan and to evaluate needs. Patient stated that she lives independently alone but has help at times from her sons. At discharge, the patient plans to return home and feels this is a safe discharge. CM discussed availability of home health, rehab services, and medical equipment. Patient declined HHS, SNF, and DME. Patient would like to have [facility] Inpatient Rehab. RAMA signed and placed on chart. Patient voiced no other needs at this time and is satisfied with DC plan. DC IMM delivered, explained, signed by the patient, and placed in chart. Signed form also left with the patient. CM will continue to follow and will assist as needed with dc plans/needs. DCP REVIEW SUMMARY ANTICIPATED D/C DATE: 06/07/2020 EXPECTED LOS : 1 CASE STATUS: DCP Initiated INITIAL REVIEW: 06/06/2020 INITIAL REVIEWER: Devang Cedeño FINAL DISCHARGE DISPOSITION: 62 : Discharged/Trans to IP Rehab Facility Including Distinct Units of a Hospital FINAL REVIEWER: Rosibel Almendarez FINAL REVIEW DATE: 06/09/2020 DCP Focus Questions & Answers DCP REV -DCP Review Added on: 06/07/20 2:05 pm QUESTION: ANSWER DCP Evaluation Patient gives permission to discuss discharge plans with: (name, relationship and number) : VALERIA TELLEZ, ERROL, Physical Status: : Independent with ADL's Baseline cognitive status: : *Oriented to person, place, situation, time and present Patient's ability to cope with chronic illness : d. No chronic illness Living Arrangements: : Home Alone with Support Medication Management: : Patient states can afford medications Medication Management: : Patient states can read and understand medication labels Pharmacy name(s): : [facility] [place], [place] Does Patient have transportation to get home and to follow-up medical appointments when discharged from the hospital? : Yes Does the patient have electricity at home? : Yes Does the patient have running water in their house? : Yes Equipment in use: : Cane - [employer] Mental health screen: : No mental health history Patient's current cognitive status: : *Oriented to person, place, situation, time and present Functional screen assessment: : Basic needs can adequately be met by self Patient with capacity for self-care or can be cared for in same environment as prior to hospitalization? : Yes Does the patient have the ability to pay for or attain post discharge needs / services? : Yes Is there a likelihood that the patient will require additional services to return to the preadmission environment? : No Patient and/or caregiver agree upon recommended discharge plan? : Yes Equipment needed for post hospitalization: : None Physical environment modification needed / anticipated for discharge: : No Would patient like to participate in any Care Coordination programs (if applicable): : Not applicable DCP Re-evaluation Would patient like to participate in any Care Coordination programs (if applicable): : Not applicable PATIENT: GWEN TELLEZ ENCOUNTER: [id number] MEDICAL RECORD#: [id number] ADMISSION DATE: 06/06/2020 DISCHARGE DATE: 06/08/2020 ATTENDING MD: BARTOLO: [id number] AGE: 70 MARITAL STATUS: S DC PLAN ID: [id number] FACILITY: [facility] PRINTED ON: 06/09/20 10:15 CT All edits/amendments must be made on the electronic document DICTATION DATE: 06/09/20 1015 SUPPLIER QUALITY SPECIALIST: LORIE 06/09/20 1015 RPT#: [id number] DC DATE:06/08/20 STATUS: DIS IN [facility] [address] [place] [address] END OF REPORT
--- NOTE | 2020-06-09 18:09 | OP ---
PATIENT NAME: GWEN MILLER MEDICAL RECORD: [id number] :46 LOCATION:D. D.1210 ADMISSION DATE:06/06/20 SURGEON: ALLY MUNOZ MD DATE OF OPERATION: 06/06/2020 PREOPERATIVE DIAGNOSIS: Osteoarthritis, left knee. POSTOPERATIVE DIAGNOSIS: Osteoarthritis, left knee. PROCEDURE PERFORMED: Left total knee arthroplasty. INDICATIONS: Ms. Miller is a 70-year-old female with history of left knee pain and arthritis. This has been going on for some time now and is beginning to affect her mobility. She has elected to proceed with surgery for left total knee arthroplasty. Risks, benefits, and alternatives of surgery were discussed with the patient and consent was obtained. DESCRIPTION OF PROCEDURE: The patient was met in the holding area where her identity and confirmation of procedure was performed. The left lower extremity was marked. She was taken to the operating room where she was placed supine on the operating table. Anesthesia was administered. Tourniquet was applied to the left leg. The left leg was prepped and draped in a sterile fashion. The patient received preoperative antibiotics as well as TXA and a timeout was performed before initiating the case. On initiation of the case, the leg was exsanguinated and the tourniquet was raised. Total tourniquet time was approximately 85 minutes. A medial parapatellar approach was utilized for exposure. The knee was placed in the flexion. Incision was made over the anterior knee, dissected down to the extensor mechanism. The quad tendon was then split along its medial border curving medially around the patella and extending medially down the medial border of the patellar tendon. The knee was then taken into extension. Tissue from the posterior fat pad of the patella and over the anterior distal femur was excised. Flap tissue was elevated off the medial tibial plateau and a portion of the medial meniscus was excised. The patella was then everted. The knee was brought back into flexion. Charlotte's line was marked and the cruciate ligaments were excised. The femoral tunnel was then drilled and our intramedullary femoral guide was inserted. The distal femoral cutting block was pinned into position. The distal femur cut was completed and the femur was sized to a size 3. The 4-in-1 cutting block was pinned into place. Our anterior, posterior, and chamfer cuts were completed. The bony pieces were removed as well as osteophytes from around the distal femur. The trial for a box cut was then positioned over the distal femur and pinned into place. A box cut was completed using the reciprocating saw and osteotome. The bony piece was removed. We then turned our attention to the tibia. Tibia was brought forward. The remainder of the medial and lateral menisci were excised. Extramedullary tibial guide was placed and adjusted for alignment 2 mm off the medial tibial plateau. The bony piece was removed and the tibia was sized to a size 2. The trial was pinned into place. We then placed our femoral trial and trialed this with a size 9 poly, at which point, we felt to have good fit and stability throughout range of motion. We then turned our attention to the patella. The patella was everted and towel clips were placed at the superior and inferior poles. Cautery was used around the circumference. Caliper was used to personnel consultant the width. Patella was then cut to the floor of the lateral facet. Sized to a size 31 and drilled. We then turned our attention back to the tibia. This knee was replaced into flexion and the poly and femoral trial were removed. PCL retractor was placed and the tibia was OPERATIVE REPORT [id number] GWEN MILLER prepared using a punch. Trial components were then removed. The laminar senior mainframe programmer analyst was inserted. Posterior osteophytes were removed from the distal femur, both medial and lateral. The knee was then irrigated thoroughly with saline. With the knee extended, joint solution was injected around the capsule of the proximal tibia and the distal femur. Bony ends were then dried and the knee was repositioned in flexion. Final components were cemented into place. Trial poly was placed and the knee was held in full extension while the cement was allowed to dry. The patella was held with a patellar clamp. Excess cement was removed throughout this process. Once the cement was dry, we then trialed the knee again with our size 9 poly and it was felt to have good fit and stability throughout range of motion. Our final size 9 posterior stabilized poly was then placed and tapped into position. It was again taken through range of motion, had good fit and stability throughout range of motion. The knee was irrigated thoroughly with saline. A drain was then placed on the lateral gutter. The extensor mechanism was closed with #1 Vicryl suture. Subcutaneous tissue was irrigated thoroughly with saline. The remainder of the joint solution was injected. Subcutaneous tissue was closed with 2-0 Vicryl and the skin was closed with johnny. A sterile dressing was placed. The patient was turned back over to anesthesia where she was awakened, extubated, and taken to recovery room in stable condition. POSTOPERATIVE PLAN: The patient is going to be admitted for routine postoperative care. She will receive 24 hours of postoperative antibiotics to be started on DVT prophylaxis tomorrow. Physical therapy will be consulted to assist with mobility. Weightbearing as tolerated, left lower extremity. PLAN: Rehab upon discharge. COMPLICATIONS: None. ESTIMATED BLOOD LOSS: 50 mL. ANESTHESIA: General with peripheral nerve block. TRANSINT:[id number] Voice Confirmation ID: [id number] DOCUMENT ID: [id number] ALLY MUNOZ MD at 1809 CC: [id number] DICTATION DATE: 06/06/20 1545 ARMED CUSTOM PROTECTION OFFICER: 06/07/20 0051 DIS IN 06/08/20 [id number] [place] [address]
== END 2020-06-08 17:20 | DRG 470 ==
LOC: D.M3 06-06 07:40 → D.SDCHOLD 06-06 07:40 → D.M3 06-06 15:16
PROVIDERS: Family Medicine; ADMIT Orthopaedic Surgery; ATTEND Orthopaedic Surgery
PROC: 0SRD0J9 Replacement of Left Knee Joint with Synthetic Substitute, Cemented, Open Approach (ICD-10-PCS; principal; 2020-06-06 10:30)
DX: M17.12 Unilateral primary osteoarthritis, left knee (principal); N17.9 Acute kidney failure, unspecified; J44.9 Chronic obstructive pulmonary disease, unspecified; I11.0 Hypertensive heart disease with heart failure; I50.9 Heart failure, unspecified; G25.81 Restless legs syndrome

== ENCOUNTER 2020-06-08 16:02 | Inpatient (IN) | payer MEDICARE, OTHER ==
[~2020-06-08] VITALS: Ht 152.4 cm; Wt 70.3 kg
[~2020-06-08 16:02] MED LIST changes: +ISOSORBIDE MONO30 M1 PO; +NORVASC2.5 MG PO
[2020-06-08] MEDS ORDERED: ELIQUIS2.5 MG PO (16:14)
[2020-06-08] MEDS ORDERED: HYDROCODONE-AC1 EAC2 PO (16:16)
[2020-06-08] MEDS ORDERED: OXYCONTIN10 MG PO (16:17)
[2020-06-08 17:59] VITALS: BP 102/50; BMI 30.3
--- NOTE | 2020-06-08 19:00 | NUR ---
BEDSIDE REPORT COMPLETE. RECEIVED PT SITTING UP IN BED ALERT AND ORIENTED X4 DENIES ANY NEEDS OR PAIN. NO IV OR OXYGEN NOTED. LEFT KNEE DRESSING INTACT DRAINAGE NOTED AND MARKED. LEFT BUTTCHEEK 3CM X 1CM SHEARING NOTED. WILL ORDER CALMOSEPTINE. ENCOURAGED PT TO Q2H TURN WHILE IN BED. PT VERBALIZED UNDERSTANDING. CALL LIGHT AND WATER WITHIN REACH. FALL PRECAUTIONS IN PLACE. CPOC
[2020-06-08 21:56] VITALS: BP 136/75
--- NOTE | 2020-06-09 01:48 | NUR ---
PT LYING IN BED ON LEFT SIDE EYES CLOSED RESTING. RR EVEN AND UNLABORED. CALL LIGHT WITHIN REACH.
--- NOTE | 2020-06-09 03:10 | NUR ---
ASSISTED PT TO RESTROOM AND BACK TO BED WITH MIN ASSIST. C/O 9/10 LEFT KNEE RADIATING DEEP THROBBING PAIN. NO OTHER NEEDS VOICED. WILL ADMININSTER PAIN MEDICATION PER ORDER. CALL LIGHT WITHIN REACH.
[2020-06-09 06:17] LABS: BASOPHILS 0.2 % (0-2); EOSINOPHILS 4.4 % (0-7); HEMATOCRIT 28.2 % (36.0-48.0); HEMOGLOBIN 8.9 g/dL (12-16); IMMATURE GRANULOCYTES 0.2 % (0-5); LYMPHOCYTE ABS# 1.43 10x3/uL (1.18-3.74); LYMPHOCYTES 16.5 % (15-50); MCH 26.3 pg (26.0-34.0); MCHC 31.6 g/dL (31.0-37.0); MCV 83.4 fL (80.0-100.0); NEUTROPHIL ABS# 6.06 10x3/uL (1.56-6.13); NEUTROPHILS 69.7 % (40-80); PLATELET COUNT 184 10x3/uL (130-400); RBC 3.38 10x6/uL (4.00-5.40); RDW 15.2 % (11.5-14.5); WBC 8.7 10x3/uL (4.8-10.8)
[2020-06-09 06:32] LABS: ANION GAP 8.9 mmol/L (8-16); CALCIUM 7.2 mg/dL (8.5-10.1); CARBON DIOXIDE 25.3 mmol/L (21.0-32.0); CREATININE - SERUM 1.4 mg/dL (0.6-1.3); POTASSIUM - SERUM 4.2 mmol/L (3.5-5.1)
[2020-06-09 08:00] VITALS: BP 129/55
--- NOTE | 2020-06-09 08:00 | NUR ---
SHIFT ASSMT COMPLETED.
--- NOTE | 2020-06-09 10:45 | NUR ---
PATIENT ADMITTED TO REHAB FROM ACUTE FLOOR. DISCHARGE PLANS ARE FOR PATIENT TO RETURN TO HER HOME. DME AT HOME IS A CANE. WILL FOLLOW WITH PATIENT AND WILL ASSIST WITH DC PLANS.
--- NOTE | 2020-06-09 16:30 | NUR ---
HUNG CPM TODAY.
[2020-06-09 20:00] VITALS: BP 94/41
--- NOTE | 2020-06-09 20:00 | NUR ---
PATIENT IS ALERT/ORIENT. CALL LIGHT WITHIN REACH. VOICES NO NEEDS AT THIS TIME. WILL CONTINUE WITH PLAN OF CARE
--- NOTE | 2020-06-10 00:47 | NUR ---
PATIENT RESTING WELL. EYES CLOSED. RESP EVEN. CALL LIGHT WITHIN REACH.
--- NOTE | 2020-06-10 02:53 | NUR ---
PRN PAIN MEDICATION GIVEN PER PATIENT REQUEST
--- NOTE | 2020-06-10 04:14 | NUR ---
PATIENT USING CALL LIGHT FOR NEEDS. STANDBY ASST FROM BED TO WHEELED WALKER TO USE BATHROOM
--- NOTE | 2020-06-10 05:24 | NUR ---
I have reviewed this patient and I concur with the Shift Assessment completed by the Licensed Practical Nurse today this shift.
[2020-06-10 08:00] VITALS: BP 179/62
--- NOTE | 2020-06-10 10:34 | NUR ---
RESTING COMFORTABLY IN BED. HAS BEEN UP WITH THERAPY THIS MORNING. PAIN MEDS GIVEN ORDERED. DSG INTACT TO LEFT KNEE. CALL LIGHT IN REACH
[2020-06-10 13:14] VITALS: Ht 152.4 cm; Wt 70.3 kg
--- NOTE | 2020-06-10 18:50 | NUR ---
BEDSIDE REPORT COMPLETE. RECEIVED PT SITTING UP IN BED. ALERT AND ORIENTED X4. DENIES ANY NEEDS OR PAIN. NO DISTRESS NOTED. NO IV OR OXYGEN. LEFT KNEE DRESSING INTACT. SLIGHTLY REDDNESS AND WARMTH KNEE AREA. CALL LIGHT AND WATER WITHIN REACH. FALL PRECAUTIONS IN PLACE. CPOC
[2020-06-10 20:10] VITALS: BP 121/65
[2020-06-10 22:12] LABS: BASOPHILS 0.6 % (0-2); EOSINOPHILS 7.1 % (0-7); HEMATOCRIT 29.5 % (36.0-48.0); HEMOGLOBIN 9.2 g/dL (12-16); IMMATURE GRANULOCYTES 0.4 % (0-5); LYMPHOCYTE ABS# 1.72 10x3/uL (1.18-3.74); LYMPHOCYTES 24.3 % (15-50); MCH 25.9 pg (26.0-34.0); MCHC 31.2 g/dL (31.0-37.0); MCV 83.1 fL (80.0-100.0); MONOCYTES 8.9 % (2-11); NEUTROPHIL ABS# 4.15 10x3/uL (1.56-6.13); NEUTROPHILS 58.7 % (40-80); RBC 3.55 10x6/uL (4.00-5.40); RDW 15.2 % (11.5-14.5); WBC 7.1 10x3/uL (4.8-10.8)
[2020-06-10 22:13] LABS: PLATELET COUNT 244 10x3/uL (130-400)
[2020-06-10 22:20] LABS: ANION GAP 12.4 mmol/L (8-16); CALCIUM 7.7 mg/dL (8.5-10.1); CARBON DIOXIDE 24.4 mmol/L (21.0-32.0); CREATININE - SERUM 1.5 mg/dL (0.6-1.3); POTASSIUM - SERUM 4.8 mmol/L (3.5-5.1)
--- NOTE | 2020-06-10 22:37 | NUR ---
PT LYING IN BED EYES CLOSED RESTING. EASILY AROUSED UPON ENTERING ROOM. PAIN REASSESSED 3/10 ACHING LEFT KNEE PAIN. NO DISTRESS NOTED. CALL LIGHT AND W/C WITHIN REACH.
--- NOTE | 2020-06-11 01:00 | NUR ---
PT LYING IN BED SUPINE EYES CLOSED RESTING. RR EVEN AND UNLABORED. CALL LIGHT WITHIN REACH
--- NOTE | 2020-06-11 04:37 | NUR ---
PT SITTING UP IN BED AWAKE. DENIES ANY NEEDS. NO ACUTE CHANGES IN CONDITION THIS SHIFT. CALL LIGHT WITHIN REACH
[2020-06-11 06:01] LABS: BASOPHILS 0.3 % (0-2); EOSINOPHILS 9.3 % (0-7); HEMATOCRIT 30.1 % (36.0-48.0); HEMOGLOBIN 9.3 g/dL (12-16); IMMATURE GRANULOCYTES 0.7 % (0-5); LYMPHOCYTE ABS# 1.51 10x3/uL (1.18-3.74); LYMPHOCYTES 25.5 % (15-50); MCH 25.7 pg (26.0-34.0); MCHC 30.9 g/dL (31.0-37.0); MCV 83.1 fL (80.0-100.0); MEAN PLATELET VOLUME 9.7 fL (7.4-10.4); MONOCYTES 9.1 % (2-11); NEUTROPHIL ABS# 3.26 10x3/uL (1.56-6.13); NEUTROPHILS 55.1 % (40-80); PLATELET COUNT 260 10x3/uL (130-400); RBC 3.62 10x6/uL (4.00-5.40); RDW 15.2 % (11.5-14.5); WBC 5.9 10x3/uL (4.8-10.8)
[2020-06-11 06:16] LABS: ANION GAP 15.9 mmol/L (8-16); CALCIUM 7.5 mg/dL (8.5-10.1); CARBON DIOXIDE 22.5 mmol/L (21.0-32.0); CREATININE - SERUM 1.3 mg/dL (0.6-1.3); POTASSIUM - SERUM 4.4 mmol/L (3.5-5.1)
[2020-06-11 08:00] VITALS: BP 127/77
--- NOTE | 2020-06-11 15:21 | NUR ---
LAYING IN BED WATCHING TV ON COMPUTER. DENIES NEW OR WORSE PAIN. GETS AROUND IN HER ROOM BY HERSELF. USES WC. CALL LIGHT IN REACH
--- NOTE | 2020-06-11 19:00 | NUR ---
BEDSIDE REPORT COMPLETE. RECEIVED PT SITTING UP IN BED AWAKE. ALERT AND ORIENTED X4. DENIES ANY NEEDS OR PAIN. NO DISTRESS NOTED. LEFT KNEE 7DAY DRESSING INTACT. NO NEW DRAINAGE NOTED ON DRESSING. INSECT BITE BANEGAS NOTED ON LEFT UPPER THIGH AREAS AREA RED AND PT REPORTS THEM BEING "ITCHY". HYDROCORTISONE CREAM HAS BEEN ORDERED. NO OTHER NEEDS VOICED. CALL LIGHT WITHIN REACH. BED WAIVER SIGNED. ALL OTHER FALL PRECAUTIONS IN PLACE. CPOC
[2020-06-11 20:39] VITALS: BP 108/52
--- NOTE | 2020-06-11 21:44 | NUR ---
PT LYING IN BED AWAKE RESTING. PAIN REASSESSED 2/10 DEEP ACHING LEFT KNEE DISCOMFORT. REMOVED ICE FROM LEFT KNEE. NO OTHER NEEDS VOICED. CALL LIGHT WITHIN REACH.
--- NOTE | 2020-06-12 01:04 | NUR ---
PT LYING IN BED ON RIGHT SIDE EYES CLOSED RESTING. RR EVEN AND UNLABORED. CALL LIGHT WITHIN REACH
--- NOTE | 2020-06-12 01:19 | NUR ---
PT PROPELLED SELF IN W/C TO NURSE STATION REQUESTING PAIN MEDICATION FOR 6/10 LEFT KNEE DEEP THROBBING PAIN. ADMININSTERED NORCO 7.5MG X2 PER ORDER. OFFERED TO ASSIST BACK TO ROOM PT DENIED OFFER. NO OTHER NEEDS VOICED.
--- NOTE | 2020-06-12 04:21 | NUR ---
PT LYING IN BED SUPINE EYES CLOSED RESTING. NO DISTRESS NOTED. CALL LIGHT WITHIN REACH
--- NOTE | 2020-06-12 05:47 | NUR ---
PT SITTING UP IN BED AWAKE. C/O LEFT KNEE 7/10 DEEP RADIATING THROBBING PAIN. ICE PACK APPLIED, PAIN MEDICATION ADMININSTERED. NO OTHER NEEDS VOICED. CALL LIGHT WITHIN REACH.
[2020-06-12 08:13] VITALS: BP 120/51
--- NOTE | 2020-06-12 19:00 | NUR ---
BEDSIDE REPORT COMPLETE. RECEIVED PT LYING IN BED, CPM ON LLE. PT DENIES ANY NEEDS OR PAIN. NO DISTRESS NOTED. LEFT KNEE DRESSING INTACT. CALL LIGHT WITHIN REACH. FALL PRECAUTIONS IN PLACE. CPOC
[2020-06-12 20:52] VITALS: BP 110/58
--- NOTE | 2020-06-13 02:28 | NUR ---
PT LYING IN BED EYES CLOSED RESTING. RR EVEN AND UNLABORED. CALL LIGHT WITHIN REACH
--- NOTE | 2020-06-13 05:43 | NUR ---
PT SITTING UP IN W/C GETTING READY FOR THE DAY. DENIES ANY NEEDS. NO DISTRESS NOTED. NO ACUTE CHANGES IN CONDITION NOTED THIS SHIFT. CPOC
[2020-06-13 07:13] LABS: BASOPHILS 0.9 % (0-2); EOSINOPHILS 5.6 % (0-7); HEMATOCRIT 32.5 % (36.0-48.0); IMMATURE GRANULOCYTES 0.4 % (0-5); LYMPHOCYTE ABS# 1.76 10x3/uL (1.18-3.74); LYMPHOCYTES 25.4 % (15-50); MCH 25.5 pg (26.0-34.0); MCHC 30.8 g/dL (31.0-37.0); MCV 82.9 fL (80.0-100.0); MEAN PLATELET VOLUME 10.1 fL (7.4-10.4); NEUTROPHILS 57.7 % (40-80); RBC 3.92 10x6/uL (4.00-5.40); RDW 15.2 % (11.5-14.5); WBC 6.9 10x3/uL (4.8-10.8)
[2020-06-13 07:22] LABS: ANION GAP 12.4 mmol/L (8-16); CALCIUM 9.1 mg/dL (8.5-10.1); CARBON DIOXIDE 26.9 mmol/L (21.0-32.0); CREATININE - SERUM 1.2 mg/dL (0.6-1.3); POTASSIUM - SERUM 4.3 mmol/L (3.5-5.1)
[2020-06-13 07:25] LABS: PLATELET COUNT 343 10x3/uL (130-400)
[2020-06-13 08:00] VITALS: BP 129/75
--- NOTE | 2020-06-13 13:27 | NUR ---
SITTING UP IN BED IN HER ROOM VISITING WITH A VISITOR. ASKED FOR PAIN MEDS FOR LEFT KNEE PAIN. CALL LIGHT IN REACH
[2020-06-13 20:00] VITALS: BP 132/74
--- NOTE | 2020-06-14 04:31 | NUR ---
PT IS RESTING WITH EYES CLOSED. RESPIRATIONS ARE EVEN AND UNLABORED. HER CALL LIGHT IS WITHIN REACH. BED ALARM IS OFF DUE TO HER SIGNING THE BED ALARM WAIVER. HER BED IS LOW AND SIDE RAILS UP X 2.
[2020-06-14 07:09] LABS: ANION GAP 12.7 mmol/L (8-16); BASOPHILS 0.7 % (0-2); CALCIUM 8.5 mg/dL (8.5-10.1); CARBON DIOXIDE 26.4 mmol/L (21.0-32.0); CREATININE - SERUM 1.5 mg/dL (0.6-1.3); EOSINOPHILS 6.5 % (0-7); HEMATOCRIT 32.5 % (36.0-48.0); HEMOGLOBIN 10.3 g/dL (12-16); LYMPHOCYTE ABS# 2.23 10x3/uL (1.18-3.74); LYMPHOCYTES 32.7 % (15-50); MCH 26.1 pg (26.0-34.0); MCHC 31.7 g/dL (31.0-37.0); MCV 82.3 fL (80.0-100.0); MEAN PLATELET VOLUME 9.9 fL (7.4-10.4); MONOCYTES 8.4 % (2-11); NEUTROPHIL ABS# 3.45 10x3/uL (1.56-6.13); NEUTROPHILS 50.7 % (40-80); PLATELET COUNT 347 10x3/uL (130-400); POTASSIUM - SERUM 4.1 mmol/L (3.5-5.1); RBC 3.95 10x6/uL (4.00-5.40); RDW 15.2 % (11.5-14.5); WBC 6.8 10x3/uL (4.8-10.8)
[2020-06-14 08:00] VITALS: BP 107/73
--- NOTE | 2020-06-14 08:00 | NUR ---
SHIFT ASSMT COMPLETED.CL IN REACH.UP IN WC.ALARM WAIVER ON CHART.DENIES NEEDS.
--- NOTE | 2020-06-14 12:00 | NUR ---
EATING LUNCH.DENIES ANY NEEDS.
[2020-06-14] MEDS ORDERED: YUPELRI INH (14:20)
[2020-06-14] MEDS ORDERED: HYDROCODONE-AC1 EAC2 PO (14:20)
[2020-06-14] MEDS ORDERED: OXYCONTIN10 MG PO (14:21)
--- NOTE | 2020-06-14 15:26 | NUR ---
Nutrition Follow-up: Diet: Cardiac PO intake: ~54% average x last 6 meals recorded into EMR. She ate 100% of breakfast and most of her lunch tray today. She states that her appetite is "okay." She really likes the food here. Last BM: 06/13/20 x 2 Wt: 155# (06/10/20) Meds noted: cortef, k-dur, bumex, abx Labs noted: BUN 23(H), Cr 1.5(H), GFR 36(L) Recommend continue current diet. Will continue to honor food preferences within diet restrictions. RD will follow-up within 7 days.
--- NOTE | 2020-06-14 16:00 | NUR ---
RESTING QUIETLY IN BED.
--- NOTE | 2020-06-14 20:12 | NUR ---
PT IN BED WATCHING TV, NO IMMEDIATE NEEDS NOTED, FLUIDS/CL WITHIN REACH
[2020-06-15 05:34] LABS: BASOPHILS 0.9 % (0-2); EOSINOPHILS 6.3 % (0-7); HEMATOCRIT 28.4 % (36.0-48.0); IMMATURE GRANULOCYTES 1.4 % (0-5); LYMPHOCYTE ABS# 2.05 10x3/uL (1.18-3.74); LYMPHOCYTES 29.4 % (15-50); MCHC 31.7 g/dL (31.0-37.0); MCV 82.1 fL (80.0-100.0); MEAN PLATELET VOLUME 9.8 fL (7.4-10.4); MONOCYTES 9.5 % (2-11); NEUTROPHIL ABS# 3.66 10x3/uL (1.56-6.13); NEUTROPHILS 52.5 % (40-80); PLATELET COUNT 322 10x3/uL (130-400); RBC 3.46 10x6/uL (4.00-5.40); RDW 15.5 % (11.5-14.5)
[2020-06-15 05:57] LABS: ANION GAP 10.9 mmol/L (8-16); CALCIUM 8.3 mg/dL (8.5-10.1); CREATININE - SERUM 1.3 mg/dL (0.6-1.3); POTASSIUM - SERUM 3.9 mmol/L (3.5-5.1)
--- NOTE | 2020-06-15 08:00 | NUR ---
SHIFT ASSMT COMPLETED.CL IN REACH.PLANS TO DISCHARGE TODAY.
--- NOTE | 2020-06-15 11:27 | NUR ---
PATIENT DISCHARGING HOME WITH FAMILY TODAY. [facility] WILL PROVIDE N[facility]SING FOR PATIENT. [facility] HAS DELIVERED A ROLLING WALKER AND A BEDSIDE COMMODE. DR. HAWKINS 06/21/20 @ 11:45, DR. MUNOZ 06/21/20 @ 1:00. RAMA SINGED, IMM SERVED AND EXPLAINED. ONE FILED IN CHART AND ONE GIVEN TO PATIENT. NO COMPARE DATA REVIEWED PER PATIENT REQUEST. DC INSTRUCTIONS FAXED TO PCP, HOME HEALTH AND REVIEWED WITH PATIENT.
--- NOTE | 2020-06-15 15:40 | NUR ---
REVIEWED MEDS AND CALLED TO PHARMACY.F/U APPTS GIVEN.DC'D TO HOME WITH SON.
== END 2020-06-15 15:40 | disposition home health service (06) | DRG 560 ==
LOC: D.REHAB 16:02
PROVIDERS: ADMIT Emergency Medicine; ATTEND Emergency Medicine
DX: Z47.1 Aftercare following joint replacement surgery (principal); K57.92 Diverticulitis of intestine, part unspecified, without perforation or abscess without bleeding; Z96.652 Presence of left artificial knee joint; M17.12 Unilateral primary osteoarthritis, left knee; I11.0 Hypertensive heart disease with heart failure; I50.9 Heart failure, unspecified; J43.9 Emphysema, unspecified; K21.9 Gastro-esophageal reflux disease without esophagitis